=== PATIENT | male | born 1980 | race Hispanic/Latino ===

== ENCOUNTER 2017-07-16 08:09 | Outpatient (CLI) | payer OTHER ==
--- NOTE | 2017-07-16 11:11 | MRI ---
MRI CERVICAL SPINE NONCONTRAST: History: 37-year-old male with bilateral cervical radiculopathy and cervicalgia. Neck pain with bilateral upp er extremity parathesias for two weeks. Comparison: None. FINDINGS: No Chiari I malformation. Cervical spinal cord is normal in size and signal. Cervical spinal canal i s diffusely small in caliber on a congenital basis due to developmentally short pedicles. Disc space s are maintained. No high grade degenerative facet changes at any level. Loss of lordosis. C1-2: No additional findings. C2-3: No additional findings. C3-4: No additional findings. C4-5: No additional findings. C5-6: Asymmetrically moderate sized left uncovertebral joint osteophytes that cause moderate to harleen re left neural foraminal stenosis. Smaller right uncovertebral joint osteophytes causing moderate ri ght neural foraminal stenosis. Left uncovertebral joint osteophytes efface the left anterior aspect of the spinal canal. Overall moderate central spinal canal stenosis. C6-7: No additional findings. C7-T1: No additional findings. IMPRESSION: 1. Bilateral neural foraminal stenosis, left greater than right, and moderate central spinal canal s tenosis, left greater than right, at C5-6. 2. Loss of lordosis, suggestive of muscle spasm. POS: [facility]
== END 2017-07-16 08:10 | disposition home or self-care (01) ==
LOC: SCSMRI 08:09
PROVIDERS: ATTEND Family Medicine
DX: G56.93 Unspecified mononeuropathy of bilateral upper limbs (principal); M54.2 Cervicalgia; M48.02 Spinal stenosis, cervical region; M40.50 Lordosis, unspecified, site unspecified
CPT/HCPCS: 72141

== ENCOUNTER 2018-08-12 13:26 | Outpatient (CLI) | payer OTHER ==
--- NOTE | 2018-08-12 15:13 | ULT ---
ULTRASOUND SOFT TISSUE: Date: 08/12/18 HISTORY: Swelling of neck. COMPARISON: None. FINDINGS: Real-time Ahmadi scale and color evaluation of the right and left supraclavicular area was seen. No mas s is appreciated. IMPRESSION: No mass is appreciated of the supraclavicular neck. CT or MRI may be beneficial if clinically warrant ed. POS: [facility]
== END 2018-08-12 13:27 | disposition home or self-care (01) ==
LOC: SCSULT 13:26
PROVIDERS: ATTEND Family Medicine
DX: R22.1 Localized swelling, mass and lump, neck (principal)
CPT/HCPCS: 76999

== ENCOUNTER 2023-06-14 11:03 | Outpatient (CLI) | payer OTHER | END 2023-06-14 11:04 | disposition home or self-care (01) | LOC: SCSRAD 11:03 | PROVIDERS: ATTEND Family Medicine | DX: S99.911A Unspecified injury of right ankle, initial encounter (principal); M79.89 Other specified soft tissue disorders; M25.771 Osteophyte, right ankle; M25.871 Other specified joint disorders, right ankle and foot ==